=== PATIENT | female | born 1965 | race Caucasian/White ===

== ENCOUNTER → 2017-11-10 12:39 | Outpatient (CLI) | payer OTHER, SELFPAY ==
--- NOTE | 2017-11-09 | COLBX_PTH ---
PATIENT: KELSIE HOGAN LOC: [facility] U#:[id number] AGE/SX: 60/F ROOM: RE11/10/[address]: Dr. Robbie Burt MD : 1965 BED: DIS: SPEC #: [id number] RECD: 11/10/17 11:52 STATUS: ELSA RERuperto #: [id number] SHANA: 11/09/17 00:[address]: Robbie Burt DEPT: SURGICAL PATHOLOGY RECD BY: Sarah Beckett ENTERED: 11/10/17 15:36 SP TYPE: COLON BX OTHR DR: Dr. Elvin Tse, Tissues: A - Ascending colon B - Descending colon Procedures: Surgery Specimen Level IV HEADER OPERATION: Colonoscopy PRE-OP DIAGNOSIS: Z86.010 TISSUE SUBMITTED: A ? Ascending colon polyp, B ? Descending colon polyp MICROSCOPIC DIAGNOSIS A. Ascending colon polyp, biopsy: Fragments of tubular adenoma. B. Descending colon polyp, biopsy: Fragments of tubular adenoma. AM:jeniffer 11/11/17 MICROSCOPIC DESCRIPTION Slides are reviewed. GROSS DESCRIPTION A - Received in fixative is one container labeled with the patient's name and designated ascending colon polyp. The specimen consists of multiple irregular fragments of light zuleta soft tissue that in aggregate measure 0.7 x 0.4 x 0.2 cm. The specimen is totally submitted in one cassette. B - Received in fixative is one container labeled with the patient's name and designated descending colon polyp. The specimen consists of multiple irregular fragments of light zuleta soft tissue that in aggregate measure 2 x 0.7 x 0.2 cm. The specimen is totally submitted in one cassette. / RY:jeniffer 11/10/17 TC:5 CPT: 62945 x2
== END ==
PROVIDERS: Family Provider Student in an Organized Health Care Education/Training Program; PCP Student in an Organized Health Care Education/Training Program; Visit Provider Internal Medicine Gastroenterology
DX: D12.2 Benign neoplasm of ascending colon (principal); D12.4 Benign neoplasm of descending colon; Z86.010 Personal history of colon polyps
CPT/HCPCS: 88305